=== PATIENT | male | born 1985 | race Two or more races ===

== ENCOUNTER 2023-01-02 15:25 | Emergency (ER) | payer SELFPAY ==
[~2023-01-02] VITALS: Ht 172.7 cm; Wt 94.5 kg
[2023-01-02] MEDS ORDERED: LIDOCAINE 1% HCL (LOCAL ANESTH.) INJ 20ML MDV ID ONE (19:45)
[2023-01-02] MEDS ORDERED: cefTRIAXone SOD 1,000 MG VL IM ONE (19:45)
[2023-01-02] MEDS ORDERED: HYDROcodone-ACET 5/325MG TAB PO ONE (19:45)
[2023-01-02] MEDS ORDERED: TETANUS-DIPTH-ACEL PERTUSSIS 0.5ML SYR Tdap IM ONE (19:45)
[2023-01-02] MEDS ORDERED: MUPI2OIN2 EX (20:26)
[2023-01-02] MEDS ORDERED: CEPH500C PO (20:26)
[2023-01-02] MEDS ORDERED: IBUP1TAB5 PO (20:26)
[2023-01-02] MEDS ORDERED: NEOMYCIN-BACITRACIN-POLYM UNITDOSE PKG TOP OINT TOP ONE (20:30)
[2023-01-02 21:01] VITALS: BP 110/86; PULSE 68; RESP 17; TEMP 98.7; O2SAT 97
== END 2023-01-02 21:02 | disposition home or self-care (01) ==
LOC: ER 15:25
DX: S01.311A Laceration without foreign body of right ear, initial encounter (principal); W18.09XA Striking against other object with subsequent fall, initial encounter; Y93.89 Activity, other specified; Y92.89 Other specified places as the place of occurrence of the external cause; Y99.8 Other external cause status
CPT/HCPCS: 12013; 70450; 90471; 90715; 96372; 99285; J0696; J2001